=== PATIENT | male | born 1990 | race African-American/Black ===

== ENCOUNTER 2018-11-15 08:44 | Emergency (ER) | payer OTHER ==
--- NOTE | 2018-11-15 09:29 | ER Document Report ---
ED Medical Screen (RME) - General Chief Complaint: Flu Symptoms Stated Complaint: FLU LIKE SYMPTOMS Time Seen by Provider: 11/15/18 09:28 Notes: 28-year-old male to the emergency department with flulike symptoms for 1 week. Has been having worsening abdominal pain. Went to urgent care. Sent here for further evaluation. Of note, patient has HIV. Has been off of his medications for 1 week as well. Having count of diffuse abdominal pain, fever, nausea, body aches I have greeted and performed a rapid initial assessment of this patient. A comprehensive ED assessment and evaluation of the patient, analysis of test results and completion of the medical decision making process will be conducted by additional ED providers. TRAVEL OUTSIDE OF THE [place] IN LAST 30 DAYS: No - Related Data Allergies/Adverse Reactions: No Known Allergies Allergy (Verified 11/15/18 08:45) Past Medical History Infectious Medical History: Reports: Hx HIV Review of Systems - Review of Systems Constitutional: Chills, Fever, Malaise, Weakness Cardiovascular: denies: Chest pain, Palpitations, Heart racing Gastrointestinal: Abdominal pain, Diarrhea, Nausea, Vomiting Genitourinary: denies: Burning, Dysuria, Discharge Musculoskeletal: Muscle pain Physical Exam - Vital signs Vitals: Temp Pulse Resp BP Pulse Ox 100.1 F 94 18 146/69 H 96 11/15/18 08:50 11/15/18 08:50 11/15/18 08:50 11/15/18 08:50 11/15/18 08:50 Interpretation: Febrile - General General appearance: Appears well - Respiratory Respiratory status: No respiratory distress Chest status: Nontender Breath sounds: Normal Chest palpation: Normal - Cardiovascular Rhythm: Regular Heart sounds: Normal auscultation Murmur: No - Abdominal Inspection: Normal Distension: No distension Bowel sounds: Normal Tenderness: Nontender Organomegaly: No organomegaly Course - Vital Signs Vital signs: Temp Pulse Resp BP Pulse Ox 100.1 F 94 18 146/69 H 96 11/15/18 08:50 11/15/18 08:50 11/15/18 08:50 11/15/18 08:50 11/15/18 08:50
[2018-11-15] MEDS ORDERED: ONDANSETRON 4 MG TAB.RAPDIS PO ONE (09:35)
[2018-11-15] MEDS ORDERED: IBUPROFEN 400 MG TABLET PO ONE (09:36)
[2018-11-15 10:07] LABS: ABSOLUTE BASOPHILS # (AUTO) 0.1 10^3/uL (0.0-0.2); ABSOLUTE LYMPHOCYTES (AUTO) 2.3 10^3/uL (0.5-4.7); ABSOLUTE MONOCYTES (AUTO) 1.2 10^3/uL (0.1-1.4); BASOPHILS % (AUTO) 0.6 % (0-2); EOSINOPHILS % (AUTO) 0.2 % (0-6); HEMOGLOBIN 15.2 g/dL (13.5-17.0); LYMPHOCYTES % (AUTO) 19.9 % (13-45); MEAN CORPUSCULAR HEMOGLOBIN 27.2 pg (27.0-33.4); MEAN CORPUSCULAR HGB CONC 33.7 g/dL (32.0-36.0); MEAN CORPUSCULAR VOLUME 81 fl (80-97); MONOCYTES % (AUTO) 10.2 % (3-13); PLATELET COUNT 394 10^3/uL (150-450); RED BLOOD COUNT 5.56 10^6/uL (4.35-5.55); RED CELL DISTRIBUTION WIDTH 13.8 % (11.5-14.0); SEGMENTED NEUTROPHILS % (AUTO) 69.1 % (42-78); TOTAL CELLS COUNTED % (AUTO) 100 %; WHITE BLOOD COUNT 11.5 10^3/uL (4.0-10.5)
[2018-11-15] MEDS ORDERED: NORMAL SALINE 1000 ML 1,000 ML IV ONE (10:10)
--- NOTE | 2018-11-15 10:12 | ER Document Report ---
ED Flu Like - General Chief Complaint: Flu Symptoms Stated Complaint: FLU LIKE SYMPTOMS Time Seen by Provider: 11/15/18 09:28 Notes: 28-year-old male to the emergency department with flulike symptoms for 1 week. Has been having worsening abdominal pain. Went to urgent care. Sent here for further evaluation. Of note, patient has HIV. Has been off of his medications for 1 week as well. Having count of diffuse abdominal pain, fever, nausea, body aches Patient complains of some sharp abdominal cramping which lasts about 5 minutes and it usually happens at least once an hour. Patient complains of cough sore throat muscle aches. He has had several loose stools no black bloody or tarry stools and has had some nausea and vomiting. Patient stated this is been going on for about a week he has come here for evaluation initially with urgent care who sent him here TRAVEL OUTSIDE OF THE [place] IN LAST 30 DAYS: No - Related Data Allergies/Adverse Reactions: No Known Allergies Allergy (Verified 11/15/18 08:45) Past Medical History - Social History Smoking Status: Never Smoker Chew tobacco use (# tins/day): No Frequency of alcohol use: None Drug Abuse: None Family History: Other Patient has suicidal ideation: No Patient has homicidal ideation: No Pulmonary Medical History: Reports: Hx Asthma Renal/ Medical History: Denies: Hx Peritoneal Dialysis Infectious Medical History: Reports: Hx HIV Review of Systems - Review of Systems Constitutional: Chills, Fever EENT: Nose congestion, Throat pain. denies: Blurred vision Cardiovascular: denies: Chest pain, Edema Gastrointestinal: Abdominal pain, Diarrhea, Nausea, Vomiting. denies: Constipation, Blood streaked bowels, Black stools, Rectal bleeding Genitourinary: denies: Dysuria, Hematuria Neurological/Psychological: denies: Headaches -: Yes All other systems reviewed and negative Physical Exam - Vital signs Vitals: Temp Pulse Resp BP Pulse Ox 100.1 F 94 18 146/69 H 96 11/15/18 08:50 11/15/18 08:50 11/15/18 08:50 11/15/18 08:50 11/15/18 08:50 - Notes Notes: GENERAL_APPEARANCE: well_nourished, alert, cooperative, no_acute_distress, no_obvious_discomfort. VITALS: reviewed, see vital signs table. HEAD: no_swelling\tenderness on the head. EYES: PERRL, EOMI, conjunctiva_clear. NOSE: Mild turbinate inflammation and clear_nasal_discharge. MOUTH: No decreased moisture THROAT: no_tonsilar_inflammation, no_airway_obstruction. no_lymphadenopathy NECK: supple, no_neck_tenderness, (-)thyromegaly. No meningismus BACK: no_back_tenderness. CHEST_WALL: no_chest_tenderness. LUNGS: no_wheezing, no_rales, no_rhonchi, (-)accessory muscle use, good air exchange bilateral. HEART: normal_rate, normal_rhythm, normal_S1, normal_S2, (-)S3, (-)S4, no_murmur, no_rub. ABDOMEN: normal_BS, soft, no_abd_tenderness, (-)guarding, (-)rebound, no_organomegaly, no_abd_masses. EXTREMITIES: good pulses in all_extremities, no_swelling\tenderness in the extremities, no_edema. SKIN: warm, dry, good_color, no_rash. No purpura petechiae MENTAL_STATUS: speech_clear, oriented_X_3, normal_affect, responds_appropriately to questions. Course - Re-evaluation Re-evalutation: 11/15/18 10:12 28 old male presents with flulike illness. Rechecking some generalized blood work. His abdomen is very soft and supple he describes as crampiness it lasts for about 5 minutes approximately once an hour. He states this does seem to correlate with loose stools. We be seeing a viral illness similar to community we will swab him for flu give him some IV fluids nausea medicine. 11/15/18 12:38 Patient has done better here he feels better after liter of IV fluids and medicine. We will discharge him home on Bentyl and Zofran. Again a repeat exam before discharge of his abdomen shows a soft and supple abdomen without focal rebound or guarding. My suspicion is this is likely viral in nature. My suspic ion for any Intra-abdominal pathology is very low. I did explain to the patient if he does not improve in 24-48 hours he should return to the ER. Certainly not all conditions will declare themselves immediately. He verbalized understanding my instructions - Vital Signs Vital signs: Temp Pulse Resp BP Pulse Ox 100.1 F 94 18 146/69 H 96 11/15/18 08:50 11/15/18 08:50 11/15/18 08:50 11/15/18 08:50 11/15/18 08:50 - Laboratory Result Diagrams: 11/15/18 09:50 11/15/18 10:40 Laboratory results interpreted by me: 11/15/18 11/15/18 11/15/18 09:50 10:40 11:51 WBC 11.5 H RBC 5.56 H Sodium 135.1 L BUN 6 L Urine Blood SMALL H Urine Ascorbic Acid 20 H Discharge - Discharge Clinical Impression: Nausea & vomiting Qualifiers: Vomiting type: unspecified Vomiting Intractability: non-intractable Qualified Code(s): R11.2 - Nausea with vomiting, unspecified Abdominal pain Qualifiers: Abdominal location: generalized Qualified Code(s): R10.84 - Generalized abdominal pain Condition: Good Disposition: HOME, SELF-CARE Instructions: Abdominal Pain ([facility]), Antispasmodics ([facility]), Vomiting ([facility]) Prescriptions: Dicyclomine HCl [Bentyl 20 mg Tablet] 20 mg PO QID PRN #30 tablet PRN Reason: Abdominal Cramping Ondansetron [Zofran Odt 4 mg Tablet] 1 - 2 tab PO Q4H PRN #15 tab.rapdis PRN Reason: For Nausea/Vomiting
--- NOTE | 2018-11-15 11:03 | RADIOLOGY REPORT (SQ) ---
EXAM DESCRIPTION: ACUTE ABDOMEN SERIES COMPLETED DATE/TIME: 11/15/2018 10:34 am REASON FOR STUDY: ABD PAIN COMPARISON: None. NUMBER OF VIEWS: Three views. TECHNIQUE: Frontal chest, supine abdomen and upright/decubitus abdomen radiographic images acquired. LIMITATIONS: None. FINDINGS: CHEST: Lungs clear of infiltrates. FREE AIR: None. No abnormal gas collections. BOWEL GAS PATTERN: Nonobstructive pattern. No dilated loops or air fluid levels. CALCIFICATIONS: No suspicious calcifications. HARDWARE: None in the abdomen. SOFT TISSUES: No gross mass or suggestion of organomegaly. BONES: No acute fracture. No worrisome bone lesions. OTHER: No other significant finding. IMPRESSION: NO RADIOGRAPHIC EVIDENCE FOR ACUTE ABDOMINAL DISEASE. TECHNICAL DOCUMENTATION: JOB ID: [id number] [employer]- All Rights Reserved Reading location - IP/workstation name: [email or web address]
[2018-11-15 11:11] LABS: ALANINE AMINOTRANSFERASE 23 U/L (21-72); ALBUMIN 3.9 g/dL (3.5-5.0); ALKALINE PHOSPHATASE 84 U/L (38-126); ANION GAP 8 (5-19); ASPARTATE AMINO TRANSFERASE 24 U/L (17-59); BILIRUBIN,DIRECT 0.2 mg/dL (0.0-0.4); BILIRUBIN,TOTAL 0.8 mg/dL (0.2-1.3); BLOOD UREA NITROGEN 6 mg/dL (7-20); CARBON DIOXIDE 24 mmol/L (22-30); CHLORIDE 103 mmol/L (98-107); GLUCOSE 108 mg/dL (75-110); LIPASE 34.6 U/L (23-300); POTASSIUM 3.8 mmol/L (3.6-5.0); SODIUM 135.1 mmol/L (137-145); TOTAL PROTEIN 7.3 g/dL (6.3-8.2)
[2018-11-15 11:20] LABS: A TYPE INFLUENZA AG NEGATIVE (NEGATIVE); B INFLUENZA AG NEGATIVE (NEGATIVE)
[2018-11-15 12:12] LABS: APPEARANCE,URINE CLEAR; BILIRUBIN,URINE NEGATIVE (NEGATIVE); COLOR,URINE YELLOW; GLUCOSE, URINE NEGATIVE (NEGATIVE); KETONES,URINE NEGATIVE (NEGATIVE); LEUKOCYTE ESTERASE,URINE NEGATIVE (NEGATIVE); NITRITE,URINE NEGATIVE (NEGATIVE); PROTEIN,URINE NEGATIVE (NEGATIVE); URINE SPECIFIC GRAVITY 1.006; UROBILINOGEN,URINE NEGATIVE mg/dL (<2.0)
[2018-11-15 12:55] VITALS: BP 130/63
== END 2018-11-15 13:02 | disposition home or self-care (01) ==
LOC: ER 08:44
DX: R11.2 Nausea with vomiting, unspecified (principal); R10.9 Unspecified abdominal pain; R50.9 Fever, unspecified; R05 Cough; M79.10 Myalgia, unspecified site; B20 Human immunodeficiency virus [HIV] disease
CPT/HCPCS: 99284; 96360; 36415; 83690; 85025; 80053; 81001; 87804; 74022; S0119; J3490; J7030